=== PATIENT | male | born 1975 | race Caucasian/White ===

== ENCOUNTER 2019-07-01 18:00 | Emergency (ER) | payer BC, OTHER ==
[2019-07-01 18:23] LABS: Absolute Lymphocytes (CBC) 1.8 K/uL (0.7-4.9); Basophils % 0.6 % (0-1.3); Hematocrit 38.1 % (39.6-49.0); Lymphocytes % 28.2 % (15.3-44.8); RBC Red Blood Cell Count 4.09 M/uL (4.33-5.43)
[2019-07-01 18:26] LABS: Protime INR 0.93
[2019-07-01 18:51] LABS: ALT/SGPT 67 U/L (12-78); AST/SGOT 36 U/L (15-37); Albumin 3.7 g/dL (3.4-5.0); Alkaline Phosphatase 76 U/L (45-117); BUN Blood Urea Nitrogen 12 mg/dL (7-18); Bicarbonate 27 mmol/L (21-32); Bilirubin Direct 0.2 mg/dL (0-0.2); Bilirubin Total 0.5 mg/dL (0.2-1.0); Glucose Level 144 mg/dL (74-106); Magnesium 1.9 mg/dL (1.8-2.4); NT PRO-BNP 68 pg/mL (<125); Protein, Total 7.6 g/dL (6.4-8.2); Sodium Level 137 mmol/L (136-145); Troponin (Emerg Dept Use Only) < 0.02 ng/mL (0.0-0.045)
--- NOTE | 2019-07-01 18:55 | EDPHYS ---
Physician Documentation [facility] Name: Morris Corea Age: 44 yrs Sex: Male : 1975 Arrival Date: 07/01/2019 Time: 18:01 Bed 18 Private MD: ED Physician Ozzy Holt HPI: 06/30 18:36 This 44 yrs old Male presents to ER via EMS with complaints of High Blood ma2 Pressure. 18:36 The patient has elevated blood pressure and discovered this at home. Onset: The ma2 symptoms/episode began/occurred gradually, 2 week(s) ago. Associated signs and symptoms: Pertinent negatives: chest pain, dizziness, dyspnea, headache, lightheadedness, nausea, visual changes, vomiting, weakness. Severity of symptoms: At its worst the blood pressure was moderate, in the emergency department the blood pressure is unchanged. The patient has experienced similar episodes in the past. has htn was at his doctor office for regular alelrgy treatment and bp was 170/90. he has no symptoms, did not take his bp medicine today. . Historical: - Allergies: 18:04 No Known Allergies; bp - Home Meds: 18:04 atorvastatin oral oral [Active]; Hydrochlorothiazide Oral [Active]; carvedilol oral bp oral [Active]; losartan oral oral [Active]; - PMHx: 18:04 Hyperlipidemia; Hypertension; bp - Immunization history:: Adult Immunizations up to date. - Social history:: Smoking status: Patient denies any tobacco usage or history of. Patient/guardian denies using alcohol, street drugs, The patient lives with family. - Family history:: not pertinent. ROS: 18:36 Constitutional: Negative for fever, chills, and weight loss. ma2 18:36 All other systems are negative. Exam: 18:36 Constitutional: This is a well developed, well nourished patient who is awake, alert, ma2 and in no acute distress. Head/Face: Normocephalic, atraumatic. Eyes: Pupils equal round and reactive to light, extra-ocular motions intact. Lids and lashes normal. Conjunctiva and sclera are non-icteric and not injected. Cornea within normal limits. Periorbital areas with no swelling, redness, or edema. ENT: Nares patent. No nasal discharge, no septal abnormalities noted. Tympanic membranes are normal and external auditory canals are clear. Oropharynx with no redness, swelling, or masses, exudates, or evidence of obstruction, uvula midline. Mucous membranes moist. Neck: Trachea midline, no thyromegaly or masses palpated, and no cervical lymphadenopathy. Supple, full range of motion without nuchal rigidity, or vertebral point tenderness. No Meningismus. Chest/axilla: Normal chest wall appearance and motion. Nontender with no deformity. No lesions are appreciated. Cardiovascular: Regular rate and rhythm with a normal S1 and S2. No gallops, murmurs, or rubs. Normal PMI, no JVD. No pulse deficits. Respiratory: Lungs have equal breath sounds bilaterally, clear to auscultation and percussion. No rales, rhonchi or wheezes noted. No increased work of breathing, no retractions or nasal flaring. Abdomen/GI: Soft, non-tender, with normal bowel sounds. No distension or tympany. No guarding or rebound. No evidence of tenderness throughout. MS/ Extremity: Pulses equal, no cyanosis. Neurovascular intact. Full, normal range of motion. Neuro: Awake and alert, GCS 15, oriented to person, place, time, and situation. Cranial nerves II-XII grossly intact. Motor strength 5/5 in all extremities. Sensory grossly intact. Cerebellar exam normal. Normal gait. Vital Signs: 18:01 BP 170 / 98; Pulse 80; Resp 16; Temp 98; Pulse Ox 97% ; Weight 97.52 kg; Height 6 ft. bp (182.88 cm); 18:07 BP 168 / 90; Pulse 81; Resp 16; Pulse Ox 99% ; bp 19:03 BP 157 / 89; Pulse 81; Resp 18; Temp 98.5; Pulse Ox 100% on R/A; mg2 18:01 Body Mass Index 29.16 (97.52 kg, 182.88 cm) bp MDM: 18:02 Patient medically screened. ma2 18:36 Differential diagnosis: essential htn, hypertension in setting on medication non ma2 compliant vs electrolyte disturbance. Data reviewed: vital signs, nurses notes. Counseling: I had a detailed discussion with the patient and/or guardian regarding: the historical points, exam findings, and any diagnostic results supporting the discharge/admit diagnosis, the presence of at least one elevated blood pressure reading (>120/80) during this emergency department visit, the need for outpatient follow up. Response to treatment: the patient's symptoms have markedly improved after treatment. 06/30 18:02 Order name: Basic Metabolic Panel; Complete Time: 18:52 ma2 06/30 18:02 Order name: CBC with Diff; Complete Time: 18:52 ma2 06/30 18:02 Order name: LFT's; Complete Time: 18:52 ma2 06/30 18:02 Order name: Magnesium; Complete Time: 18:52 ma2 06/30 18:02 Order name: NT PRO-BNP; Complete Time: 18:52 ma2 06/30 18:02 Order name: PT-INR; Complete Time: 18:52 ma2 06/30 18:02 Order name: Troponin (emerg Dept Use Only); Complete Time: 18:52 ma2 06/30 18:02 Order name: EKG; Complete Time: 18:04 ma2 06/30 18:02 Order name: Cardiac monitoring; Complete Time: 18:03 ma2 06/30 18:03 Order name: EKG - Nurse/Tech; Complete Time: 18:24 ma06/30 18:03 Order name: IV Saline Lock; Complete Time: 18:24 ma2 06/30 18:03 Order name: Labs collected and sent; Complete Time: 18:24 ma06/30 18:03 Order name: O2 Per Protocol; Complete Time: 18:03 ma2 06/30 18:03 Order name: O2 Sat Monitoring; Complete Time: 18:04 ma2 Administered Medications: 19:12 Drug: Potassium Chloride 40 mEq Route: PO; mg2 19:12 Follow up: Response: No adverse reaction; Medication administered at discharge. mg2 Disposition: 07/01/19 18:54 Discharged to Home. Impression: Essential (primary) hypertension, Hypokalemia. - Condition is Stable. - Discharge Instructions: Potassium Content of Foods, Hypertension, Hypertension, [id number]. - Prescriptions for Potassium Chloride 10 mEq Oral Tablet - take 1 tablet by ORAL route every 12 hours; 30 tablet. - Medication Reconciliation Form, Thank You Letter, Antibiotic Education, Prescription Opioid Use form. - Follow up: Private Physician; When: Tomorrow; Reason: Continuance of care. Signatures: Dispatcher MedHo Alberto Singer RN RN bp Ozzy Holt MD MD ma2 Celso Henderson RN RN mg2 Corrections: (The following items were deleted from the chart) 19:13 18:54 07/01/2019 18:54 Discharged to Home. Impression: Essential (primary) mg2 hypertension; Hypokalemia. Condition is Stable. Discharge Instructions: Hypertension, [id number]. Forms are Medication Reconciliation Form, Thank You Letter, Antibiotic Education, Prescription Opioid Use. Follow up: Private Physician; When: Tomorrow; Reason: Continuance of care. ma2
--- NOTE | 2019-07-01 18:55 | ER ---
Nurse's Notes [facility] Name: Morris Corea Age: 44 yrs Sex: Male : 1975 Arrival Date: 07/01/2019 Time: 18:01 Bed 18 Private MD: Diagnosis: Essential (primary) hypertension;Hypokalemia Presentation: 06/30 18:01 Chief complaint: EMS states: HYPERTENSIVE AT [facility] OFFICE AND 911 CALLED. bp Coronavirus screen: Patient denies fever greater than 100.4F, cough, shortness of breath, or difficulty breathing. Proceed with normal triage process. Ebola Screen: No symptoms or risks identified at this time. Initial Sepsis Screen: Does the patient meet any 2 criteria? No. Patient's initial sepsis screen is negative. Does the patient have a suspected source of infection? No. Patient's initial sepsis screen is negative. Risk Assessment: Do you want to hurt yourself or someone else? Patient reports no desire to harm self or others. 18:01 Method Of Arrival: EMS: [facility] bp 18:01 Acuity: FOUZIA 3 bp Triage Assessment: 18:04 General: Appears in no apparent distress. comfortable, Behavior is cooperative, bp appropriate for age, anxious. Pain: Denies pain. EENT: No deficits noted. Neuro: No deficits noted. Cardiovascular: No deficits noted. Respiratory: No deficits noted. GI: No signs and/or symptoms were reported involving the gastrointestinal system. : No signs and/or symptoms were reported regarding the genitourinary system. Derm: No deficits noted. Musculoskeletal: No deficits noted. Historical: - Allergies: 18:04 No Known Allergies; bp - Home Meds: 18:04 atorvastatin oral oral [Active]; Hydrochlorothiazide Oral [Active]; carvedilol oral bp oral [Active]; losartan oral oral [Active]; - PMHx: 18:04 Hyperlipidemia; Hypertension; bp - Immunization history:: Adult Immunizations up to date. - Social history:: Smoking status: Patient denies any tobacco usage or history of. Patient/guardian denies using alcohol, street drugs, The patient lives with family. - Family history:: not pertinent. Screenin:06 Abuse screen: Denies threats or abuse. Denies injuries from another. Nutritional bp screening: No deficits noted. Tuberculosis screening: No symptoms or risk factors identified. Fall Risk None identified. Assessment: 18:06 General: SEE TRIAGE NOTE. bp Vital Signs: 18:01 BP 170 / 98; Pulse 80; Resp 16; Temp 98; Pulse Ox 97% ; Weight 97.52 kg; Height 6 ft. bp (182.88 cm); 18:07 BP 168 / 90; Pulse 81; Resp 16; Pulse Ox 99% ; bp 19:03 BP 157 / 89; Pulse 81; Resp 18; Temp 98.5; Pulse Ox 100% on R/A; mg2 18:01 Body Mass Index 29.16 (97.52 kg, 182.88 cm) bp ED Course: 18:01 Patient arrived in ED. bp 18:02 Ozzy Holt MD is Attending Physician. ma2 18:03 Triage completed. bp 18:05 Arm band placed on. bp 18:06 Patient has correct armband on for positive identification. Bed in low position. Call bp light in reach. Side rails up X2. 18:09 Boston Oliva, RN is Primary Nurse. em 19:11 No provider procedures requiring assistance completed. IV discontinued, intact, mg2 bleeding controlled, No redness/swelling at site. Pressure dressing applied. Administered Medications: 19:12 Drug: Potassium Chloride 40 mEq Route: PO; mg2 19:12 Follow up: Response: No adverse reaction; Medication administered at discharge. mg2 Outcome: 18:54 Discharge ordered by . ma2 19:11 Discharged to home ambulatory. mg2 19:11 Condition: stable 19:11 Discharge instructions given to patient, Instructed on discharge instructions, follow up and referral plans. Demonstrated understanding of instructions, follow-up care. 19:13 Patient left the ED. mg2 Signatures: Boston Oliva, RN PÉREZ Alberto Mcclelland RN RN bp Ozzy Holt MD MD maCelso Adler RN RN mg2
[2019-07-01] MEDS ORDERED: POTASSIUM CL SA 10 MEQ TAB PO ONE (19:05)
[2019-07-01 19:32] VITALS: BP 157/89; TEMP 98.5; O2SAT 100
--- NOTE | 2019-07-02 05:24 | EKG ---
Test Date: 2019-07-01 Test Time: 18:14:10 Yard Person: ITALIA MEASUREMENT RESULTS: Intervals: Rate: 79 CA: 178 QRSD: 108 QT: 382 QTc: 438 [place]: P: 20 CA: 178 QRS: 16 T: 29 INTERPRETIVE STATEMENTS: Normal sinus rhythm Normal ECG No previous ECG available for comparison Electronically Signed On 07-02-19 05:23:40 CDT by Naun Jung
== END 2019-07-01 19:13 | disposition home or self-care (01) ==
LOC: ER 18:00
DX: E87.6 Hypokalemia (principal); E78.5 Hyperlipidemia, unspecified
CPT/HCPCS: 36415; 80048; 80076; 83735; 83880; 84484; 85025; 85610; 93005; 99283